=== PATIENT | female | born 1960 | race Caucasian/White ===

== ENCOUNTER 2019-06-26 08:19 | Day surgery (SDC) | payer BC ==
[~2019-06-26] VITALS: Ht 160 cm; Wt 99.9 kg
[~2019-06-26 08:19] MED LIST: ASPI81TA45 PO; HYDROCHLOROTH12.5 MG PO; MELO7.5T31 PO; METO25TA91 PO; MULT-516 PO
[2019-06-26] MEDS ORDERED: LACTATED RINGERS 1,000 ML IV SCH (08:35)
[2019-06-26 08:51] VITALS: BP 99/65
[2019-06-26] MEDS ORDERED: ACETAMINOPHEN 500 MG TABLET PO ONE (09:00)
[2019-06-26] MEDS ORDERED: GABAPENTIN 300 MG CAPSULE PO ONE (09:00)
[2019-06-26 09:51] LABS: ALBUMIN 3.7 g/dL (3.4-5.0); ANION GAP 8 mmol/L (5-15); CALCIUM 8.9 mg/dL (8.5-10.1); CHLORIDE 111 mmol/L (98-107)
[2019-06-26 09:55] LABS: ALANINE AMINOTRANSFERASE 28 U/L (12-78); ALKALINE PHOSPHATASE 35 U/L (45-117); BILIRUBIN,TOTAL 0.9 mg/dL (0.2-1.0); CREATININE 0.67 mg/dL (0.55-1.02); TOTAL PROTEIN 6.6 g/dL (6.4-8.2)
[2019-06-26] MEDS ORDERED: BUPIVACAINE/PF 0.5% ONE (12:54)
[2019-06-26] MEDS ORDERED: ISOSULFAN BLUE 10 MG/ML, 5ML IV ONE (12:55)
[2019-06-26] MEDS ORDERED: EPINEPHRINE 1 MG/ML, 1ML ONE (12:55)
[2019-06-26] MEDS ORDERED: FENTANYL PF 250 MCG/5ML ONE (13:43)
[2019-06-26] MEDS ORDERED: HYDROmorphone 2 MG/ML, 1ML IVPush PRN (14:00)
[2019-06-26] MEDS ORDERED: HALOPERIDOL 5 MG/ML IV PRN (14:00)
[2019-06-26] MEDS ORDERED: PROMETHAZINE 25 MG/ML, 1ML IV PRN (14:00)
[2019-06-26] MEDS ORDERED: FENTANYL PF 100 MCG/2ML IV PRN (14:00)
[2019-06-26] MEDS ORDERED: hydrALAzine 20 MG/ML, 1ML IV PRN (14:00)
[2019-06-26] MEDS ORDERED: OXYcodone 5 MG/5 ML ORAL.SOL UDC PO PRN (14:00)
[2019-06-26] MEDS ORDERED: LABETALOL 5MG/ML, 20ML IV PRN (14:00)
[2019-06-26] MEDS ORDERED: MEPERIDINE/PF 25MG/ML,1ML IVPush PRN (14:00)
[2019-06-26] MEDS ORDERED: EPHEDRINE 50 MG/ML, 1ML ONE (14:04)
[2019-06-26] MEDS ORDERED: DEXAMETHASONE 4 MG/ML, 1ML ONE (14:59)
[2019-06-26] MEDS ORDERED: ONDANSETRON 2MG/ML, 2ML ONE (14:59)
[2019-06-26] MEDS ORDERED: CEFAZOLIN 1,000 MG ONE (14:59)
[2019-06-26] MEDS ORDERED: PROPOFOL 10 MG/ML, 20ML ONE (14:59)
== END 2019-06-26 17:15 | disposition home or self-care (01) ==
LOC: OUT 08:19 → EDSTATUS 13:30 → OUT 17:15
PROVIDERS: ATTEND Surgery
DX: C43.62 Malignant melanoma of left upper limb, including shoulder (principal); L57.8 Other skin changes due to chronic exposure to nonionizing radiation; I10 Essential (primary) hypertension; G89.29 Other chronic pain; M54.9 Dorsalgia, unspecified; Z79.899 Other long term (current) drug therapy; Z82.49 Family history of ischemic heart disease and other diseases of the circulatory system; Z83.3 Family history of diabetes mellitus
CPT/HCPCS: 14301; 36415; 38525; 78195; 80053; 88307; 88331; 88341; 88342; 93005; A9541; C1760; J0171; J0690; J1100; J2405; J2704; J3010; J7120